=== PATIENT | male | born 1930 | race Caucasian/White ===

== ENCOUNTER 2016-11-20 07:02 | Emergency (ER) | payer MEDICARE, OTHER ==
[2016-11-20] MEDS ORDERED: IBUPROFEN 600 MG TABLET ONE (08:07)
[2016-11-20] MEDS ORDERED: ACYCLOVIR 400 MG TABLET ONE (08:07)
[2016-11-20] MEDS ORDERED: ACETAMINOPHEN 325 MG TABLET ONE (08:07)
== END 2016-11-20 08:21 | disposition home or self-care (01) ==
LOC: ED 07:02
DX: B02.9 Zoster without complications (principal); I10 Essential (primary) hypertension
CPT/HCPCS: 99283 ×2; A9270 ×3